=== PATIENT | male | born 1950 | race Caucasian/White ===

== ENCOUNTER 2017-04-06 09:03 | Emergency (ER) | payer OTHER ==
[2017-04-06] MEDS ORDERED: ONDANSETRON 4 MG/2 ML VIAL IVP ONE (09:18)
[2017-04-06] MEDS ORDERED: HYDROmorphONE/DILAUDID 1 MG/ML INJ IVP ONE (09:18)
[2017-04-06] MEDS ORDERED: KETOROLAC 30 MG/1 ML SDV IVP ONE (09:18)
[2017-04-06] MEDS ORDERED: NS 500 ML IV ONE (09:18)
--- NOTE | 2017-04-06 09:20 | EDPHY ---
H & P Time Seen by Provider: 04/06/17 09:10 HPI/ROS: HPI Neck pain. 66-year-old male by private vehicle with his son. This patient has a history of cervical spine stenosis. And degenerative disc disease of the cervical spine. He has had issues with cervical pain in the past secondary to this. He has had an MRI and was told he is not a surgical candidate at this time. He reports that Tuesday evening he noticed that he had some soreness and pain involving the right upper paracervical tissues. He then had a colonoscopy on Tuesday and the pain has gotten much worse since that time. He states that there was some migration of the pain yesterday to the left side of his posterior lateral neck but this then resolved and the right side has been continuous and very uncomfortable. He denies any loss of sensation or weakness in his extremities. No bowel or bladder incontinence. He has not had a fever. He denies any headache. He reports that the pain is worse with any movement of his head or neck. ROS: Constitutional: No fever, no chills. No weakness. Eyes: No discharge. No changes in vision. ENT: No sore throat. No nasal congestion or rhinorrhea. Respiratory: No cough. No shortness of breath. Cardiac: No chest pain, no palpitations. Gastrointestinal: No abdominal pain, no vomiting, no diarrhea. Genitourinary: No hematuria. No dysuria or increased frequency with urination. Musculoskeletal: No back pain. As above. Skin: No rashes. Neurological: No headache. No focal weakness or altered sensation. Past medical history: As above, hip fracture, GERD. Social history: Nonsmoker. No alcohol. Here with his son. Physical Exam: General Appearance: Alert, he appears uncomfortable. His head neck are in a fixed and rigid forward position. This patient is responding to questions appropriately and in full sentences. This patient appears well-hydrated and well-nourished. Eyes: Pupils equal and round no pallor or injection. No lid edema, erythema or injection. Neurological: Motor sensory function is grossly intact. Cranial nerves are normal. Gait is normal. Skin: Warm and dry, no rashes. Musculoskeletal: Neck is supple. He has focal point tenderness on palpation, right-sided paracervical at the level of C2 and C3. No midline cervical, thoracic tenderness on palpation. No suboccipital tenderness on palpation. There is no soft tissue swelling, erythema, edema noted. No carotid bruits on auscultation of his neck. Extremities are symmetrical. All joints range without pain or impingement. Psychiatric: No agitation. No depression. Database: EKG: Imaging: MRI of the cervical spine without contrast: Study was compared to prior study from March 31 of last year. Worsening degenerative changes and stenosis noted at multiple levels. No cord edema. No acutely surgical pathology. Results were discussed with staff radiologist Dr. Yan Plaza. Procedures: Emergency department course: IV placed. Vital signs reviewed and are unremarkable. Patient started on IV normal saline with 500 cc to be given over the next hour. Cervical spine MRI has been ordered. He was initially given 0.5 mg of IV hydromorphone, 4 mg of IV Zofran, 10 mg of IV Decadron and 30 mg of IV Toradol. He does not have any contraindications to NSAIDs. No history of renal dysfunction. He had a normal creatinine in May of last year. 12:00 p.m., patient re-evaluated. Repeat neurologic Assessment is nonfocal and unchanged from prior. His pain is much better controlled. He is moving his head without difficulty at this time. Results of his MRI were discussed with him and his son. Plan follow up his spinal surgeon Dr. Solis. I will prescribe him Vicodin as well as stool softeners and he can start taking ibuprofen tomorrow morning. He is in agreement with this plan. He understands his follow-up. Return to emergency department precautions thoroughly reviewed with him and his son. All their questions were answered. He was discharged in good condition. Differential Diagnosis: The differential diagnosis on this patient includes but is not limited to acute cervical strain, bulging cervical intervertebral disc. Epidural compression syndrome, acute radiculopathy, fracture, subluxation, dislocation unlikely. This represents a partial list of diagnoses considered. These considerations are based on history, physical exam, past history, reassessment and diagnostic testing. Smoking Status: Never smoked Constitutional: Initial Vital Signs Temperature (C) 36.7 C 04/06/17 09:04 Heart Rate 73 04/06/17 09:04 Respiratory Rate 16 04/06/17 09:04 Blood Pressure 149/92 H 04/06/17 09:04 O2 Sat (%) 97 04/06/17 09:04 O2 Delivery Mode Room Air Allergies/Adverse Reactions: No Known Allergies Allergy (Verified 04/06/17 09:04) Home Medications: Medication Instructions Recorded Docusate Sodium [Colace 100 MG (*)] 100 mg PO TID #20 cap 04/06/17 Hydrocodone/APAP 5/325 [Sabine 1 - 2 tab PO Q4-6PRN PRN #14 tab 04/06/17 5/325 (*)] Pantoprazole Sodium [Protonix 40mg 40 mg PO 04/06/17 (*)] Medical Decision Making - Data Points Laboratory Results: Laboratory Results 04/06/17 09:26 04/06/17 09:26 Medications Given: Discontinued Medications Dexamethasone (Decadron Injection) 10 mg IVP EDNOW ONE Stop: 04/06/17 09:23 Last Admin: 04/06/17 09:36 Dose: 10 mg Hydromorphone HCl (Dilaudid) 0.5 mg IVP EDNOW ONE Stop: 04/06/17 09:19 Last Admin: 04/06/17 09:41 Dose: 0.5 mg Sodium Chloride (Ns) 500 mls @ 0 mls/hr IV EDNOW ONE; Wide Open PRN Reason: Protocol Stop: 04/06/17 09:19 Last Admin: 04/06/17 09:40 Dose: 500 mls Ketorolac Tromethamine (Toradol) 30 mg IVP EDNOW ONE Stop: 04/06/17 09:19 Last Admin: 04/06/17 09:39 Dose: 30 mg Ondansetron HCl (Zofran) 4 mg IVP EDNOW ONE Stop: 04/06/17 09:19 Last Admin: 04/06/17 09:36 Dose: 4 mg Departure - Departure Disposition: Home, Routine, Self-Care Clinical Impression: Neck pain, Degenerative arthritis of cervical spine Condition: Good Instructions: Degenerative Disc Disease (ED) Additional Instructions: Read and follow provided instructions. Follow-up with Dr. Solis as discussed for re-evaluation and ongoing management of your neck pain. She will have access to the MRI we did today. Take medication as prescribed. Ibuprofen dosin mg every 6 hours with meals for the next 3 days only. Do not start taking this medication until tomorrow morning. Take only as needed for pain. Sabine/Percocet dosin-2 every 4-[address] for [address] Do not drive on this medication. Return to the emergency department for worsening symptoms or other serious concerns. Referrals: Shaye Solis MD [Medical Doctor] - As per Instructions Daryn Bliss MD [Medical Doctor] - As per Instructions Prescriptions: Docusate Sodium [Colace 100 MG (*)] 100 mg PO TID #20 cap Hydrocodone/APAP 5/325 [Sabine 5/325 (*)] 1 - 2 tab PO Q4-6PRN PRN #14 tab PRN Reason: Pain, Moderate
[2017-04-06] MEDS ORDERED: DEXAMETHASONE 10 MG/ML VIAL IVP ONE (09:22)
[2017-04-06 09:35] LABS: % IMMATURE GRANULYOCYTES 0.2 % (0.0-1.1); ABSOLUTE IMMATURE GRANULOCYTES 0.02 10^3/uL (0.00-0.10); ADD DIFF? NO; ADD MORPH? NO; ADD SCAN? NO; ATYPICAL LYMPHOCYTE FLAG 0 (0-99); FRAGMENT RBC FLAG 0 (0-99); HEMATOCRIT 43.5 % (40.0-51.0); HEMOGLOBIN 15.4 g/dL (13.7-17.5); LEFT SHIFT FLG 0 (0-99); LIPEMIA HEMOLYSIS FLAG 90 (0-99); MEAN CELL HEMOGLOBIN 30.3 pg (27.9-34.1); MEAN CELL HEMOGLOBIN CONCENTR. 35.4 g/dL (32.4-36.7); MEAN CELL VOLUME 85.5 fL (81.5-99.8); MEAN PLATELET VOLUME 8.6 fL (8.7-11.7); PLATELET CLUMPS FLAG 20 (0-99); PLATELET COUNT 273 10^3/uL (150-400); RED BLOOD CELL COUNT 5.09 10^6/uL (4.40-6.38); RED CELL DISTRIBUTION WIDTH 13.2 % (11.5-15.2)
[2017-04-06 09:48] LABS: ANION GAP 15 mEq/L (8-16); CALCIUM 9.4 mg/dL (8.5-10.4); CARBON DIOXIDE 22 mEq/l (22-31); CHLORIDE 99 mEq/L (97-110); GLOMERULAR FILTRATION RATE > 60; GLUCOSE 123 mg/dL (70-100); POTASSIUM 3.9 mEq/L (3.5-5.2); SODIUM 136 mEq/L (134-144)
[2017-04-06 12:48] VITALS: BP 135/84; PULSE 95; RESP 18; TEMP 97.5; O2SAT 94
== END 2017-04-06 12:48 | disposition home or self-care (01) ==
DX: M47.812 Spondylosis without myelopathy or radiculopathy, cervical region (principal); E86.9 Volume depletion, unspecified
CPT/HCPCS: 72141; 96361; 96374; 96375; 99285; J1100; J1170; J1885; J2405

== ENCOUNTER → 2017-05-19 | Outpatient (CLI) | payer OTHER | LOC: FIMAGING 08:27 | PROVIDERS: ATTEND Internal Medicine Gastroenterology | DX: K22.2 Esophageal obstruction (principal); K21.9 Gastro-esophageal reflux disease without esophagitis ==